=== PATIENT | male | born 1945 ===

== ENCOUNTER 2018-06-22 12:47 | Outpatient (CLI) | payer OTHER ==
[~2018-06-22] VITALS: Ht 180.3 cm; Wt 102.1 kg
== END 2018-06-22 13:10 | disposition home or self-care (01) ==
LOC: OFIC 805 12:47
DX: H90.3 Sensorineural hearing loss, bilateral (principal); H61.23 Impacted cerumen, bilateral

== ENCOUNTER → 2019-06-06 07:20 | Outpatient (CLI) | payer OTHER | END | disposition home or self-care (01) | LOC: LAB 07:20 | DX: K63.5 Polyp of colon (principal); Z86.010 Personal history of colon polyps; D12.2 Benign neoplasm of ascending colon ==